=== PATIENT | male | born 1995 | race Two or more races ===

== ENCOUNTER 2017-01-09 16:20 | Emergency (ER) | payer OTHER ==
--- NOTE | 2017-01-09 16:49 | EDM.PDOC ---
ED HPI GENERAL MEDICAL PROBLEM - General Chief Complaint: Eye Problems Stated Complaint: FOREIGN OBJECT IN EYE,[id number] Time Seen by Provider: 01/09/17 16:49 Source of Information: Reports: Patient, RN, RN Notes Reviewed History Limitations: Reports: No Limitations - History of Present Illness INITIAL COMMENTS - FREE TEXT/NARRATIVE: Pt presents to the ER with c/o red, irritated eyes. He states it began with redness and itching in the left eye, and today the right eye became red and itchy. He states there has been white stringy/matted discharge to the each eye. He also states that he feels a "swishing" sound in the right ear, or like something is moving when he lays on the right ear. Onset Date: 01/08/17 Location: Reports: Other (eyes) Quality: Reports: Burning Severity: Moderate Improves with: Reports: None Worsens with: Reports: None Eye Pain Score (Numeric/FACES): 4 - Related Data Allergies Allergy/AdvReac Type Severity Reaction Status Date / Time dust Allergy Sneezing Uncoded 01/09/17 16:24 Home Meds: Home Meds . [No Known Home Meds] 01/09/17 [History] Past Medical History - Past Health History Medical/Surgical History: Denies Medical/Surgical History Social & Family History - Family History Family Medical History: Noncontributory - Tobacco Use Smoking Status *Q: Never Smoker Second Hand Smoke Exposure: No - Caffeine Use Caffeine Use: Reports: None - Recreational Drug Use Recreational Drug Use: No ED ROS GENERAL - Review of Systems Review Of Systems: ROS reveals no pertinent complaints other than HPI. ED EXAM GENERAL W FULL EYE - Physical Exam Exam: See Below Exam Limited By: No Limitations General Appearance: Alert, WD/WN, No Apparent Distress Eye Exam: Bilateral Eye: Conjunctival Injection, Normal Fundi, PERRL Visual Acuity (R) 20/: 30 Visual Acuity (L) 20/: 40 With Correction: No Eyelids: Bilateral: Normal Appearance Conjunctiva & Sclera: Bilateral: Injected Cornea Exam: Bilateral: Normal Appearance Extraocular Movements: Bilateral: Intact Pupils: Normal Accommodation Pupillary Size: Bilateral: 4 mm Pupillary Reaction: Bilateral: Brisk Anterior Chamber: Bilateral: Normal Appearance Posterior Chamber: Bilateral: Normal Funduscopic Ears: Hearing Grossly Normal, Other (right canal erythematous and TM bulging) Nose: Normal Inspection Throat/Mouth: Normal Inspection, Normal Voice, No Airway Compromise Head: Atraumatic, Normocephalic Neck: Normal Inspection, Supple, Non-Tender, Full Range of Motion Respiratory/Chest: No Respiratory Distress, Lungs Clear, Normal Breath Sounds, No Accessory Muscle Use, Chest Non-Tender Cardiovascular: Normal Peripheral Pulses, Regular Rate, Rhythm, No Edema, No Gallop, No JVD, No Murmur, No Rub GI/Abdominal: Normal Bowel Sounds, Soft, Non-Tender (Male) Exam: Deferred Rectal (Males) Exam: Deferred Back Exam: Normal Inspection, Full Range of Motion Extremities: Normal Inspection, Normal Range of Motion, Non-Tender, No Pedal Edema, Normal Capillary Refill Neurological: Alert, Oriented, Normal Cognition, Normal Gait, No Motor/Sensory Deficits Psychiatric: Normal Affect, Normal Mood Skin Exam: Warm, Dry, Intact, Normal Color, No Rash Lymphatic: No Adenopathy Course - Vital Signs Last Recorded V/S: Last Vital Signs Temp 97.3 F 01/09/17 16:26 Pulse 98 01/09/17 16:26 Resp 18 01/09/17 16:26 BP 109/79 01/09/17 16:26 Pulse Ox 100 01/09/17 16:26 - Orders/Labs/Meds Meds: Medications Discontinued Medications Generic Name Dose Route Start Last Admin Trade Name Saima PRN Reason Stop Dose Admin Erythromycin 1 gm 01/09/17 16:56 Erythromycin 0.5% Ophth Oint EYEBOTH 01/09/17 16:57 ONETIME ONE Departure - Departure Time of Disposition: 16:58 Disposition: Home, Self-Care 01 Condition: Good Clinical Impression: Conjunctivitis Qualifiers: Conjunctivitis type: acute Acute conjunctivitis type: bacterial Laterality: bilateral Qualified Code(s): H10.33 - Unspecified acute conjunctivitis, bilateral - Discharge Information Referrals: PCP,Not In Area [Primary Care Provider] - Forms: ED Department Discharge Additional Instructions: RX: Erythromycin ointment Use your Flonase to each nostril 1-2 times daily for 1 week or until seen in the clinic. Follow up at your primary care facility in 1 week if no improvement
[2017-01-09] MEDS ORDERED: Erythromycin Base 0.5% Ophth Oint 1 GM Tube EYEBOTH ONE (16:56)
== END 2017-01-09 17:13 | disposition home or self-care (01) ==
LOC: DL.ED 16:20
DX: H10.33 Unspecified acute conjunctivitis, bilateral (principal); Z91.048 Other nonmedicinal substance allergy status
CPT/HCPCS: 99283; A9270